=== PATIENT | male | born 1945 | race Caucasian/White ===

== ENCOUNTER 2024-01-20 07:18 | Day surgery (SDC) | payer MEDICARE, BC ==
[2024-01-20] VITALS (9 sets, daily range): BP systolic 113–136; BP diastolic 64–72; PULSE 54–81; RESP 14–18; TEMP 98; O2SAT 92–98
[~2024-01-20] VITALS: Ht 172.7 cm; Wt 92.0 kg
[2024-01-20] MEDS ORDERED: cefazolin 2gm/D5W 100mL 100 ML IV ONE (08:00)
[2024-01-20 08:17] LABS: BASOPHILS % (AUTO) 0.7 % (0-1); EOSINOPHILS # (AUTO) 0.4 X10'3 (0-0.9); EOSINOPHILS % (AUTO) 6.7 % (0-6); HEMOGLOBIN 14.7 g/dl (14.0-17.9); LYMPHOCYTES # (AUTO) 1.6 X10'3 (1.1-4.8); LYMPHOCYTES % (AUTO) 28.2 % (21-51); MEAN CORPUSCULAR HEMOGLOBIN 30.5 PG (27.0-31.0); MEAN CORPUSCULAR HGB CONC 32.7 g/dL (33.0-36.5); MEAN CORPUSCULAR VOLUME 93.1 FL (78-98); MEAN PLATELET VOLUME 8.8 FL (7.4-10.4); MONOCYTES # (AUTO) 0.5 X10'3 (0-0.9); MONOCYTES % (AUTO) 9.1 % (2-12); NEUTROPHILS # (AUTO) 3.1 X10'3 (1.8-7.7); NEUTROPHILS % (AUTO) 55.3 % (42-75); PLATELET COUNT 155 X10'3 (140-440); RED BLOOD COUNT 4.84 X10'6 (4.70-6.10); RED CELL DISTRIBUTION WIDTH 13.7 % (11.5-14.5); WHITE BLOOD COUNT 5.6 X10'3 (4.5-11.0)
[2024-01-20] MEDS ORDERED: SPIR50TA5 PO (08:22)
[2024-01-20] MEDS ORDERED: FLO0.4C PO (08:22)
[2024-01-20] MEDS ORDERED: AMLO10TA13 PO (08:22)
[2024-01-20] MEDS ORDERED: EZET10TA48 PO (08:22)
[2024-01-20] MEDS ORDERED: METF-900 PO (08:22)
[2024-01-20] MEDS ORDERED: ASPI-611 PO (08:22)
[2024-01-20] MEDS ORDERED: ROSU40TA71 PO (08:22)
[2024-01-20] MEDS ORDERED: LISI20TA28 PO (08:22)
[2024-01-20] MEDS ORDERED: DAPA10TA7 PO (08:22)
[2024-01-20] MEDS ORDERED: OMEG-43 PO (08:22)
[2024-01-20] MEDS ORDERED: FLUT16SP26 BOTHNARES (08:22)
[2024-01-20] MEDS: normal saline 1000ml 1,000 ML IV SCH (08:34)
[2024-01-20] MEDS: VANCOMYCIN 1,500MG in normal saline IV soln 300 ML IV ONE (08:34)
[2024-01-20 08:35] LABS: PROTHROMBIN TIME 10.9 SECONDS (9.0-12.0)
[2024-01-20 08:52] LABS: ALBUMIN 3.6 G/DL (3.4-5.0); ANION GAP 10 (8-16); BLOOD UREA NITROGEN 22 MG/DL (7-18); BUN/CREATININE RATIO 16.4 (10.0-20.0); CALCIUM 9.1 MG/DL (8.5-10.1); CHLORIDE 104 MMOL/L (99-107); CREATININE 1.34 MG/DL (0.60-1.10); GLUCOSE 236 MG/DL (70-104); SODIUM 137 MMOL/L (135-145); TOTAL CARBON DIOXIDE 22.8 MMOL/L (24-32); eCRCL 42 ML/MIN; eGFR 51 ML/MIN
[2024-01-20] MEDS ORDERED: midazolam 1 mg/ML 2ml injection ONE ×3 (09:04→10:44)
[2024-01-20] MEDS ORDERED: fentaNYL/PF 50MCG/1 ML 2ML syringe ONE ×2 (09:04→11:11)
[2024-01-20] MEDS ORDERED: vancomycin 1,000mg inj ONE (09:05)
[2024-01-20] MEDS ORDERED: iohexol 350 MG/ML 50ML vial IV ONE (09:05)
[2024-01-20] MEDS ORDERED: LIDOcaine 1% W/epiNEPHrine 1:100,000 20ml vial ONE ×2 (09:05→11:16)
[2024-01-20] MEDS ORDERED: normal saline 1000ml 1,000 ML IV ONE (12:05)
== END 2024-01-20 13:30 | disposition home or self-care (01) ==
LOC: SSTAY O 07:18
PROVIDERS: ATTEND Internal Medicine Cardiovascular Disease
DX: I49.5 Sick sinus syndrome (principal); I25.10 Atherosclerotic heart disease of native coronary artery without angina pectoris; I25.2 Old myocardial infarction; Z86.73 Personal history of transient ischemic attack (TIA), and cerebral infarction without residual deficits; Z79.82 Long term (current) use of aspirin; Z79.84 Long term (current) use of oral hypoglycemic drugs; Z79.899 Other long term (current) drug therapy
CPT/HCPCS: 33208; 33286; 36415; 71045; 80048; 82948; 83735; 85025; 85610; 93005; 99152; 99153; A4565; C1785; C8929; J2250; J3010; J3370; J3490; J7030; J7040; Q9967; Z7610; 93306; C1898